=== PATIENT | female | born 1965 | race Caucasian/White ===

== ENCOUNTER → 2019-09-28 15:29 | Outpatient (CLI) | payer BC, SELFPAY ==
--- NOTE | ~2019-09-28 | XR_ITS ---
XR hand RT 2V, XR hand LT 2V 09/28/2019 15:41 Indication: Arthralgias of the hand Procedure: 2 views each hand Comparison: No prior studies for comparison. Findings: No fracture, subluxation or dislocation. No erosive changes. No significant degenerative ch basim. No focal soft tissue abnormality. No radiopaque foreign bodies. Impression: 1: No significant bone or joint abnormality. Reviewed, dictated and finalized at location B. Impression: 1: No significant bone or joint abnormality. Impression: 1: No significant bone or joint abnormality.
== END ==
PROVIDERS: Visit Provider Physician Assistant Medical
DX: M25.541 Pain in joints of right hand (principal); M25.542 Pain in joints of left hand
CPT/HCPCS: 73120

== ENCOUNTER 2023-07-17 12:49 | Emergency (ER) | payer OTHER, SELFPAY ==
[2023-07-17 13:13] VITALS: BP 138/79; PULSE 79; RESP 16; TEMP 36.2; O2SAT 100
[2023-07-17 13:14] VITALS: BP 138/79; PULSE 79; RESP 16; TEMP 36.2; O2SAT 100
--- NOTE | 2023-07-17 13:28 | ED.FALL ---
HPI - Fall General Chief Complaint: Fall Stated Complaint: Fall/Headache Time Seen by Provider: 07/17/23 13:28 Source: patient Mode of arrival: ambulatory Limitations: no limitations History of Present Illness HPI Narrative: 57 yo F presents with c/o headache, pain to R side of face. States she woke up some time in the middle of the night to use the bathroom. thinks she passed out and fell forward onto her face. Woke up around 4am, laying on carpet. Unsure how long she had been laying there. R sided nose bleed for several hours now resolved. Denies vision change, confusion. Ambulatory with steady gait. Thinks she passed out due to dehydration. Has happened in the past. All systems reviewed and negative except as noted above. Related Data Home Medications Medication Instructions Recorded Confirmed hydroxychloroquine 200 mg tablet 200 mg PO DAILY 07/17/23 07/17/23 Allergies Allergy/AdvReac Type Severity Reaction Status Date / Time Penicillins Allergy Rash Verified 07/17/23 13:13 Review of Systems Review of Systems: CONSTITUTIONAL: Denies fever, chills, or sweats. EYES: Denies visual changes, redness, or discharge. ENT: Denies rhinorrhea, congestion, sore throat, or otalgia. Reports right-sided nosebleed. CARDIOVASCULAR: Denies chest pain, palpitations, or edema. RESPIRATORY: Denies cough or dyspnea. GASTROINTESTINAL: Denies abdominal pain, nausea, vomiting, or diarrhea. GENITOURINARY: Denies dysuria or hematuria. SKIN: Denies rash or itching. MUSCULOSKELETAL: Denies back pain, joint pain, or myalgia. NEUROLOGIC: Reports headache, syncopal episode. Denies numbness, or weakness. PSYCHIATRIC: Denies anxiety or depression. All other systems reviewed are negative, except as documented in HPI. PMFSH Comments At time of signature, agree with nursing past medical, surgical, social and family history. There is no relevant family history pertinent to the presenting complaint. Exam Narrative: GENERAL: This is a well-nourished, well-developed patient, in no apparent distress. HEAD: normocephalic. Tenderness on palpation to right mandible with swelling and bruising. EYES: PERRL. Sclera clear/white. Vision is grossly intact. Extraocular motions intact. EARS: External ears normal, auditory canals clear and without drainage, TMs normal without perforation. Hearing grossly intact. NOSE: External nose normal with no obvious nasal discharge, nares without redness, no rhinorrhea. Dry blood to right ear. NECK: Neck supple, non-tender without lymphadenopathy, masses or thyromegaly. CARDIOVASCULAR: Regular rate and rhythm without murmurs, gallops, or rubs. RESPIRATORY: Clear to auscultation. Breath sounds equal bilaterally. No wheezes, rales, or rhonchi. SKIN: warm, Dry, intact with no suspicious lesions or rash, good texture and turgor. NEURO: awake, alert, and oriented to person, place and time. There were no obvious focal neurologic abnormalities. EXTREMITIES: No joint tenderness, effusion, or edema noted. No calf tenderness. Negative Homans sign bilaterally. BACK: Nontender without deformity. No CVA tenderness. Course Course Level of Care: Express Care Visit Vital Signs Vital signs: Vital Signs Temperature 36.2 C L 07/17/23 13:13 Pulse Rate 79 07/17/23 13:13 Respiratory Rate 16 07/17/23 13:13 Blood Pressure 138/79 07/17/23 13:13 Pulse Oximetry 100 07/17/23 13:13 Temperature 36.2 C L 07/17/23 13:14 Pulse Rate 79 07/17/23 13:14 Respiratory Rate 16 07/17/23 13:14 Blood Pressure 138/79 07/17/23 13:14 Pulse Oximetry 100 07/17/23 13:14 reviewed Transfer Transfered to: [place] Transportation: Other (private car, pt's friend driving her) Transfer rationale: Transfer to ER for head CT, facial bone CT, labs. syncopal episode with LOC. Accepting physician: Dr Payne [facility] [place] - Fall [facility] [place] Narrative Medical decision making narrative: Transferring patient to ER for CT scan head,
== END 2023-07-17 13:41 | disposition short-term general hospital (02) ==
PROVIDERS: Emergency Provider Nurse Practitioner Family
DX: R55 Syncope and collapse (principal); R51.9 Headache, unspecified; G50.1 Atypical facial pain; M06.9 Rheumatoid arthritis, unspecified
CPT/HCPCS: 99212; G0463

== ENCOUNTER 2023-07-17 14:10 | Emergency (ER) | payer OTHER, SELFPAY ==
--- NOTE | ~2023-07-17 | CT_ITS ---
EXAMINATION: CT brain wo con DATE: 07/17/2023 15:21 INDICATION: Head injury. Syncope. TECHNIQUE: Computed tomography (CT) of the head was performed without intravenous contrast. The mA wa s adjusted according to patient size. Iterative reconstruction technique was employed. The dose-lengt h product was 529.67 mGy-cm. COMPARISON: None FINDINGS: There is no intracranial hemorrhage, acute infarction, or abnormal intracranial mass lesion . The ventricles are normal in size. The orbits are normal. There is mucosal thickening in the parana rachid sinuses. The mastoid air cells are normal. IMPRESSION: 1. Normal brain. Reviewed, dictated and finalized at location E. IMPRESSION: 1. Normal brain.
[2023-07-17 14:34] VITALS: BP 139/77; PULSE 76; RESP 16; TEMP 36.4; O2SAT 100
[2023-07-17 14:58] VITALS: BP 149/75; PULSE 86; RESP 16
[2023-07-17 15:08] VITALS: BP 146/83; PULSE 73
[2023-07-17 15:09] VITALS: BP 139/82; BP 149/75; PULSE 72
--- NOTE | 2023-07-17 15:37 | ED.SYNCOPE ---
HPI - Syncope General Chief Complaint: Syncope Stated Complaint: syncope, fall, hit head Time Seen by Provider: 07/17/23 15:05 History of Present Illness HPI narrative: Patient is a 57-year-old female who presents to the ER after a fall early this morning. She got up and use the restroom and when she was walking back to bed she passed out struck her face on the nightstand. She has an abrasion to her upper lip and another puncture area lateral to this. She has bruising over her right cheek and under her right eye. She is sent from urgent care for CT scan of her head to rule out any intracranial injury. No headache. No change in vision or hearing. She has been up and ambulatory without issue. Denies urinary frequency urgency or dysuria. Patient feels is a 3 her teeth line up. She is able to tap her teeth without any pain. She does have mild discomfort however with chewing. Related Data Home Medications Medication Instructions Recorded Confirmed hydroxychloroquine 200 mg tablet 200 mg PO DAILY 07/17/23 07/17/23 Allergies Allergy/AdvReac Type Severity Reaction Status Date / Time Penicillins Allergy Rash Verified 07/17/23 13:13 Review of Systems Review of Systems: All systems reviewed & are unremarkable except as noted in HPI and below Constitutional: Constitutional: Reports no additional constitutional complaints ENT: Reports system reviewed and no additional complaints, except as documented Cardiovascular: Cardiovascular: Reports no additional cardiovascular complaints Genitourinary: Genitourinary: Reports no additional female genitourinary complaints Neurologic: Reports syncope, Denies headache(s), Denies focal weakness and Denies numbness PMFSH Past Medical History Medical History (Updated 07/17/23 @ 16:37 by Orville Payne MD) Rheumatoid arthritis Surgical History Surgical History (Updated 07/17/23 @ 16:35 by Orville Payne MD) H/O elbow surgery H/O shoulder surgery Exam Narrative: GENERAL: Well-appearing, well-nourished, and in no acute distress. HEAD: Normocephalic, atraumatic. EYES: PERRL and EOMI. contusion beneath the right eye. ENT: Mucous membranes moist. Superficial abrasion right upper lip and abrasion versus puncture lateral to the right upper lip. NECK: Supple. No midline tenderness. CHEST: Clear to auscultation. No respiratory distress. HEART: Regular rate and rhythm. Normal peripheral pulses. EXTREMITIES: Normal range of motion. No edema. SKIN: Warm, dry, no rash. NEURO: Alert and oriented x3. PSYCH: Normal mood and affect. Course Course Emergency Course: patient resting comfortably. Informed of results. Leukocyte esterase in urine. Will place on a couple days of antibiotics just in case. Discharge home. Vital Signs Vital signs: Vital Signs Temperature 97.5 F L 07/17/23 14:34 Pulse Rate 76 07/17/23 14:34 Respiratory Rate 16 07/17/23 14:34 Blood Pressure 139/77 07/17/23 14:34 Pulse Oximetry 100 07/17/23 14:34 Oxygen Delivery Room Air 07/17/23 14:34 Temperature 97.5 F L 07/17/23 14:34 Pulse Rate 72 07/17/23 15:09 Respiratory Rate 16 07/17/23 14:34 Blood Pressure 139/82 07/17/23 15:09 Pulse Oximetry 100 07/17/23 14:34 Oxygen Delivery Room Air 07/17/23 14:34 MDM - Syncope Lab Data Labs: Lab Results 07/17/23 Range/Units 15:42 Urine Color Yellow (Yellow) Urine Appearance Clear (Clear) Urine pH 7.0 (5.0-9.0) Ur Specific [place] 1.008 (1.001-1.035) Urine Protein Negative (Negative) mg/dL Urine Glucose (UA) Negative (Negative) mg/dL Urine Ketones Negative (Negative) mg/dL Ur Blood (Man) Negative (Negative) Urine Nitrate Negative (Negative) Urine Bilirubin Negative (Negative) Urine Urobilinogen 0.2 (<2.0) mg/dL Add Ur Microanalysis Reviewed Leukocyte Esterase Rfl 2+ H (Negative) EDUAR/UL Urine RBC 0-2 (0-2) /hpf Urine WBC 0-5 (0-3) /hpf U
[2023-07-17 16:03] VITALS: BP 126/80; PULSE 67; RESP 20; TEMP 36.4; O2SAT 98
[2023-07-17 16:16] LABS: Add Urine Microscopic? YES; Appearance Urine Clear (Clear); Bacteria Urine None Seen /hpf; Bilirubin Urine Negative (Negative); Blood Urine Negative (Negative); Color Urine Yellow (Yellow); Glucose Urine UA Negative (Negative); Ketones Urine Negative (Negative); Leukocyte Esterase Ur 2+ LEU/UL (Negative); Need Manual Microscopic Reviewed; Nitrate Urine Negative (Negative); Non Pathogenic Casts 0-2; Protein Urine Negative (Negative); RBC Urine 0-2 /hpf (0-2); Specific Grav Ur 1.008 (1.001-1.035); Squamous Epithelial Cell Urine None Seen /hpf (Few); Urobilinogen Urine 0.2 mg/dL (<2.0); WBC Urine 0-5 /hpf (0-3)
[2023-07-17 16:30] VITALS: BP 118/72; PULSE 66; RESP 12; O2SAT 98
--- NOTE | 2023-07-18 07:57 | ECG_ITS ---
SEE SCANNED COPY FOR CONFIRMED REPORT MTDD
== END 2023-07-17 16:49 | disposition home or self-care (01) ==
PROVIDERS: Emergency Provider Emergency Medicine; Referring Provider Emergency Medicine
DX: R55 Syncope and collapse (principal); S00.511A Abrasion of lip, initial encounter; S00.83XA Contusion of other part of head, initial encounter; M06.9 Rheumatoid arthritis, unspecified; W01.190A Fall on same level from slipping, tripping and stumbling with subsequent striking against furniture, initial encounter
CPT/HCPCS: 70450; 81001; 93005; 99284